=== PATIENT | male | born 1930 ===

== ENCOUNTER → 2017-03-19 | Outpatient (CLI) | payer OTHER ==
[2017-03-20 20:44] LABS: HEMATOCRIT 30.4 % (38.2-49.6); HEMOGLOBIN 9.7 g/dL (14.0-18.0); RED BLOOD COUNT 3.22 x10e6/uL (4.3-5.7)
[2017-03-20 20:45] LABS: EOSINOPHILS % 0.5 % (0.0-6.0); LYMPHOCYTES % 0.4 % (18.0-39.1); MEAN CORPUSCULAR HEMOGLOBIN 30.1 pg (28-32); MEAN CORPUSCULAR HGB CONC 31.9 g/dL (31-35); MEAN CORPUSCULAR VOLUME 94.4 fL (81-99); MONOCYTES % 0.6 % (4.4-11.3); NEUTROPHILS % 5.4 % (38.7-80.0); PLATELET COUNT 192 x10e3/uL (140-360); RED CELL DISTRIBUTION WIDTH 16.3 % (11.7-14.4)
[2017-03-20 20:47] LABS: ANION GAP 13.8 mmol/L (8-16); CREATININE, SERUM 2.07 mg/dL (0.72-1.25); POTASSIUM 5.8 mmol/L (3.5-5.1)
[2017-03-20 20:48] LABS: ALBUMIN 2.6 g/dL (3.5-5.0); ALBUMIN/GLOBULIN RATIO 0.7 (0.8-2.0)
== END ==
LOC: NPA 17:00
PROVIDERS: ATTEND Internal Medicine
DX: Z02.89 Encounter for other administrative examinations (principal)
CPT/HCPCS: 36415; 80053; 85025